=== PATIENT | male | born 1990 | race African-American/Black ===

== ENCOUNTER 2024-12-12 10:01 | Outpatient (REF) | payer OTHER, SELFPAY ==
--- OUTSIDE RECORDS SUMMARY | 2024-12-12 11:19 | XMS_ITS | Data Portability ---
Author Organization [facility], [address] Address [address] [place] [address] Assessment No assessment recorded. Plan of Treatment Reminders Order Date Submit Date Provider Last Modified By Organization Details Last Modified Time Details Appointments None recorded. Lab urinalysis, dipstick 2023 024 [email or web address] [address], [address] [place], [address], 4 19:19:38 chlamydia trachomatis + neisseria gonorrhoeae + trichomonas vaginalis DNA panel, ANTONIETA+probe, urine 2023 024 CHRISTINA [facility]), [facility] [place], [address], 4 06:07:46 culture, urine 2023 024 [place] [facility], [facility] [place], [address], 4 22:05:48 Referral None recorded. Procedures None recorded. Surgeries None recorded. Imaging XR, knee, 3 view 2023 024 [email or web address] 48 [facility], [address] [place] [address], [address], 4 17:27:12 Medication Orders cephalexin 500 mg capsule 2023 024 [facility] #[id number], [address] [place], [address], 4 19:20:53 naproxen 500 mg tablet 2023 024 [facility] #[id number], [address] [place], [address], 17:21:27 Patient TargetsNo targets recorded. Patient Instructions Encounter Date Encounter Id Patient Instructions Last Modified By Organization Details Last Modified Time 02/23/2024 [id number] knee pain or injury: care instructions [email or web address] Not available 02/23/2024 16:43:53 04/10/2024 [id number] painful urinatio n (dysuria): care instructions Not available 04/10/2024 19:19:36 Urinary Tract Infections (UTI) in Men: Care Instructions Not available 04/10/2024 19:19:36 Reason for Referral None Reported. Results Created Date Observation Date Name Description Value Unit Range Abnormal Flag Note LastModifiedBy Organization Detail LastModifiedTime 04/10/2004/11/2024 URINE CULTU BEKAH VASQUEZ urine culture, routine FINAL REPORT Not Available [facility] ([facility]) [address] [place], [address], 04/11/2024 22:05:48 04/10/20 24 04/11/2024 URINE CULTU BEKAH VASQUEZ result 1 NO GROWTH Not Available [facility] ([facility]) [address] [place], [address], 04/11/2024 22:05:48 04/10/20 24 04/12/2024 CT/GC /TV ANTONIETA+M YCOPL ASMAS URINE mycoplasma genitalium ANTONIETA NEGATI VE negati ve Not Available [facility] ([facility]) [address] [place], [address], 04/13/2024 06:07:46 04/10/20 24 04/12/2024 CT/GC /TV ANTONIETA+M YCOPL ASMAS URINE mycoplasma hominis ANTONIETA NEGATI VE negati ve Not Available [facility] ([facility]) [address] [place], [address], 04/13/2024 06:07:46 04/10/20 24 04/12/2024 CT/GC /TV ANTONIETA+M YCOPL ASMAS URINE ureaplasma spp ANTONIETA NEGATI VE negati ve Not Available [facility] ([facility]) [address] [facility], [place], [address], 04/13/2024 06:07:46 04/10/20 24 04/12/2024 CT/GC /TV ANTONIETA+M YCOPL ASMAS URINE trich vag by ANTONIETA NEGATI VE negati ve Not Available [facility] ([facility]) [address] [place], [address], 04/13/2024 06:07:46 04/10/20 24 04/12/2024 CT/GC /TV ANTONIETA+M YCOPL ASMAS URINE chlamydia trachomatis, ANTONIETA POSITI VE negati ve abnormal Not Available [facility] ([facility]) [address] [place], [address], 04/13/2024 06:07:46 04/10/20 24 04/12/2024 CT/GC /TV ANTONIETA+M YCOPL ASMAS URINE neisseria gonorrhoeae, ANTONIETA NEGATI VE negati ve Not Available [facility] ([facility]) [address] [place], [address], 04/13/2024 06:07:46 04/10/20 24 04/10/2024 urina lysis , dipst ick Unknown Analyte Normal = light yellow Not Available [address] [place], [address], 04/10/2024 18:25:59 04/10/20 24 04/10/2024 urina lysis , dipst ick Unknown Analyte Normal = clear Not Available [address] [place], [address], 04/10/2024 18:25:59 04/10/20 24 04/10/2024 urina lysis , dipst ick Unknown Analyte Normal = negati ve Not Available [address] [place], [address], 04/10/2024 18:25:59 04/10/20 24 04/10/2024 urina lysis , dipst ick Unknown Analyte Negati ve Not Available [address] [place], [address], 04/10/2024 18:25:59 04/10/20 24 04/10/2024 urina lysis , dipst ick Unknown Analyte Normal = Negati ve Not Available [address] [place], [address], 04/10/2024 18:25:59 04/10/20 24 04/10/2024 urina lysis , dipst ick Unknown Analyte Negati ve Not Available [address] [place], [address], 04/10/2024 18:25:59 04/10/20 24 04/10/2024 urina lysis , dipst ick Unknown Analyte Normal = Negati ve Not Available [address] [place], [address], 04/10/2024 18:25:59 04/10/20 24 04/10/2024 urina lysis , dipst ick Unknown Analyte Negati ve Not Available [address] [place], [address], 04/10/2024 18:25:59 04/10/20 24 04/10/2024 urina lysis , dipst ick Unknown Analyte Normal = 1.010, 1.015, 1.020 Not Available [address] [place], [address], 04/10/2024 18:25:59 04/10/20 24 04/10/2024 urina lysis , dipst ick Unknown Analyte Normal = Negati ve Not Available [address] [place], [address], 04/10/2024 18:25:59 04/10/20 24 04/10/2024 urina lysis , dipst ick Unknown Analyte Negati ve Not Available [address] [place], [address], 04/10/2024 18:25:59 04/10/20 24 04/10/2024 urina lysis , dipst ick Unknown Analyte Normal = 6.5, 7.0, 7.5, 8.0 Not Available [address] [place], [address], 04/10/2024 18:25:59 04/10/20 24 04/10/2024 urina lysis , dipst ick Unknown Analyte Normal = Negati ve Not Available [address] [place], [address], 04/10/2024 18:25:59 04/10/20 24 04/10/2024 urina lysis , dipst ick Unknown Analyte Negati ve Not Available [address] [place], [address], 04/10/2024 18:25:59 04/10/20 24 04/10/2024 urina lysis , dipst ick Unknown Analyte Normal = 0.2, 1.0 Not Available [address] [place], [address], 04/10/2024 18:25:59 04/10/20 24 04/10/2024 urina lysis , dipst ick Unknown Analyte Normal = Negati ve Not Available [address] [place], [address], 04/10/2024 18:25:59 04/10/20 24 04/10/2024 urina lysis , dipst ick Unknown Analyte Negati ve Not Available [address] [place], [address], 04/10/2024 18:25:59 04/10/20 24 04/10/2024 urina lysis , dipst ick Unknown Analyte Normal = Negati ve Not Available [address] [place], [address], 04/10/2024 18:25:59 04/10/20 24 04/10/2024 urina lysis , dipst ick Unknown Analyte Negati ve Not Available [address] [place], [address], 04/10/2024 18:25:59 04/10/20 24 04/10/2024 urina lysis , dipst ick Unknown Analyte Yellow Not Available [address] [place] [address] [address] [place], [address], 04/10/2024 18:25:59 04/10/20 24 04/10/2024 urina lysis , dipst ick Unknown Analyte Clear Not Available [address] [place] [address] [address] [place], [address], 04/10/2024 18:25:59 04/10/20 24 04/10/2024 urina lysis , dipst ick Unknown Analyte 1.015 Not Available [address] [place] [address] [address] [place], [address], 04/10/2024 18:25:59 08/06/04/10/2024 urina lysis , dipst ick Unknown Analyte 6.5 Not Available [address] [place], [address], 04/10/2024 18:25:59 04/10/20 24 04/10/2024 urina lysis , dipst ick Unknown Analyte 0.2 E.U./d L Not Available [address] [place], [address], 04/10/2024 18:25:59 02/23/20 24 02/23/2024 XR, knee, 3 view No observ ation record ed. [email or web address] [facility] [address] [place], [address], 02/23/2024 17:37:34 Result Notes None recorded. Problems Name Problem SNOMED Code Status Onset Date Resolution Date Notes Provider Name and Address Organization Details Recorded Time Pain of right knee joint 4277383747978 00 Active 2023 Wilberto Minor NP [address] , [place], [address], [place] - [facility] 16:41:54 Dysuria 96069273 Active 2023 Shaniqua Padilla NP [address] , [place], [address], [place] - [facility] 19:17:31 Sexually transmitted infectious disease 3750886 Active 2023 Shaniqua Padilla NP [address] , [place], [address], [place] - [facility] 16:06:50 Problem Notes None recorded. Procedures Surgical History Date Name Laterality Status Provider Name and Address Organization Details Recorded Time vasectomy completed Anna Urias PA - [facility] 04/10/2024 18:25:44 Imaging Results Imaging Date Name Status LastModified by Organiz ation Details LastModified Time 02/23/2024 XR, knee, 3 view completed [email or web address] [facility] [address] [facility] [place], [address], 02/23/2024 17:37:34 Procedure Notes None recorded. Medical Equipment None Reported. Allergies No known drug allergies Medications Name Sig Start Date Stop Date Status Note LastModified by Organization Details LastModified Time doxycycline hyclate 100 mg capsule TAKE 1 CAPSULE BY MOUTH TWICE A DAY FOR 7 DAYS, FOR STD. active Not Available Not Available No t Available metronidazol e 500 mg tablet TAKE 1 TABLET BY MOUTH TWICE A DAY FOR 7 DAYS 02/22 completed Not Available Not Available Not Available sulfamethoxa zole 800 mg-trimethop rim 160 mg tablet TAKE 1 TABLET BY MOUTH TWICE A DAY FOR 5 DAYS 02/22 completed Not Available Not Available Not Available cephalexin 500 mg capsule TAKE 1 CAPSULE BY MOUTH THREE TIMES A DAY FOR 7 DAYS active Not Available Not Available No t Available levofloxacin 750 mg tablet TAKE 1 TABLET BY MOUTH EVERY DAY FOR 7 DAYS 02/22 completed Not Available Not Available Not Available naproxen 500 mg tablet TAKE 1 TABLET TWICE A DAY BY ORAL ROUTE NEEDED FOR 10 DAYS, FOR INFLAMMA TION, PAIN. active Not Available Not Available No t Available Vitals Date Recorded Body height Body mass index (BMI) Body weight Body temperature Respiratory rate Oxygen saturation Oxygen saturation in Arterial blood by Pulse oximetry Heart rate Systolic blood pressure Diastolic blood pressure Provider Name and Address Organization Details Last Updated DateTime 4 177.8 cm 37 kg/m2 363863. 83 g 97.5 [degF] 18 /min 98 % 98 % 77 /min 118 mm[Hg] 78 mm[Hg] Olya Quiñonez [facility] 4 16:24:41 Date Recorded Body height Body mass index (BMI) Body weight Oxygen saturation Oxygen saturation in Arterial blood by Pulse oximetry Pain severity - 0-10 verbal numeric rating [Score] - Reported Heart rate Respiratory rate Body temperature Systolic blood pressure Diastolic blood pressure Provider Name and Address Organization Details Last Updated DateTime 4 177.8 cm 37.3 kg/m2 052198. 02 g 98 % 98 % 8 72 /min 18 /min 97.7 [degF] 155 mm[Hg] 69 mm[Hg] Anna Urias RYAN - [facility] 18:24:28 Social History Question Answer Notes LastModified by Organizat ion Details LastModified Time Tobacco Smoking Status Never Smoker Olya Dent simeon PA - [facility] 02/23/2024 16:22:58 What Is Your Level Of Alcohol Consumption? Occasional Information not available 02/23/2024 Are You Currently Employed? Yes Information not available 02/23/2024 Have You Had A Flu Shot This Season? Yes [email or web address] Information not available 04/10/2024 What Was The Date Of Your Most Recent Tobacco Screening? 04/10/2024 [email or web address] Information not available 04/10/2024 Do You Use Any Illicit Or Recreational Drugs? No Information not available 02/23/2024 Have You Recently Traveled Abroad? No [email or web address] Information not available 04/10/2024 Do You Or Have You Ever Used Any Other Forms Of Tobacco Or Nicotine? No Information not available 02/23/2024 Sex: Unknown Functional Status None recorded. Mental Status None recorded. Family History Relationship Description Onset Age of this Age Resolved Age Notes LastModified by Organization Details LastModified Time Father No current problems or disability Not available 02/22 16:22:41 Mother No current problems or disability Not available 02/22 16:22:41 Medical History No medical history recorded. Immunizations Vaccine Type Date Status Note Provider Nam e and Address Organization Details Recorded Time Influenza, MDCK, quadrivalent, PF 05/28/2023 completed Lety hendrix PA - [facility] 02/23/2024 16:17:59 COVID-19, mRNA, LNP-S, PF, 30 mcg/0.3 mL dose 11/28/2020 faina hendrix PA - [facility] 02/23/2024 16:17:59 COVID-19, mRNA, LNP-S, PF, 30 mcg/0.3 mL dose 12/21/2020 faina hendrix PA - [facility] 02/23/2024 16:17:59 Tdap 03/23/2019 completed Lety Cano null, PA - [facility] 02/23/2024 16:17:59 varicella 03/23/2019 completed Lety Marier null, PA - [facility] 02/23/2024 16:17:59 varicella 04/26/2019 completed Lety Marier null, PA - [facility] 02/23/2024 16:17:59 Influenza, split virus, quadrivalent, PF 06/05/2020 completed Lety Marier null, PA - [facility] 02/23/2024 16:17:59 Influenza, split virus, quadrivalent, PF 06/29/2019 completed Letydio Cano null, PA - [facility] 02/23/2024 16:17:59 Past Encounters Encounter ID Performer Location Encounter Start Date Encounter Closed Date Diagnosis/Indication Diagnosis SNOMED-CT Code Diagnosis ICD10 Code Diagnosis Note [id number] [address] [place] [address] 12/05/2019 09:40:02 12/05/2019 10:11:05 [id number] Wilberto Minor, [facility] [address] [facility] [address] [place] [address] 02/23/2024 16:13:55 02/23/2024 17:27:12 Pain of right knee joint 4932549100 08137 M25.561 Based on your presentati on and exam, you are diagnosed with an knee sprain. I am going to prescribe you an antiinflam matory medication to help with the discomfort . Do the knee stretches that I gave you. My suggestion s for this condition include:1. Ice2. Elevate3. Rest4. Make sure you stretch your hamstring, quadriceps , and calf regularly for the next 1-2 weeks5. Take Tylenol if you do not have any allergies to these medication s. If you take a blood thinner you should not take NSAIDS like Ibuprofen. 6. After 3 days of icing - I would switch to heat - this will help reabsorb any bruising or swelling. If you are still having pain after 7-10 days, I would suggest that you follow up with our office again or schedule and appointmen t with an orthopedis t. Advanced Imaging May be necessary I would be seen more urgently if you develop any of the following symptoms.1 . Numbness2. Cold Extremitie s3. Worsening Pain4. Skin Redness5. Calf Swelling Thank you for using [facility] , please contact our office if you have any questions or concerns. [id number] Shaniqua Padilla [place] [address] [place] [address] 04/10/2024 18:08:29 04/10/2024 19:27:00 Dysuria [id number] R30.0 The following are recommenda tions to help with your symptoms and recovery:1 . Drink Plenty of fluids - Stay hydrated2. Finish full antibiotic course3. I recommend starting a Probiotic - I recommend Florastor4 . If you take Azo - this will help the burning and urgency feeling - just be aware it will turn your urine bright yellow. I would not hesitate to be seen again if you develop:1. Severe Back Pain2. Abdominal Pain3. Nausea and Vomiting4. Vaginal Discharge or Bleeding5. Fever > 101.0 You symptoms should improve within 72 hours for a typically UTI. If a urine culture was sent out to the lab for you we should get the results back within 4 days. This will be able to prove that your symptoms are caused by a UTI and it will also verify that the correct antibiotic was prescribed . Thank you for using [facility] - please don't hesistate to call our office if you have any questions or concerns. Health Concerns Section Related Observation LastModified by Organization Detai ls LastModified Time None Recorded Concern Status LastModified by Organization Details LastModified Time None Recorded Advance Directives Directive None Recorded Payers Encounter Date Sequence Insurance Name Policy Number Policy Haque Covered Member ID Haque Member ID Guarantor Name 12/05/2019 1 [employer] [id number] Nicole Nathan [id number] Colin Nathan 02/23/2024 1 [facility] [id number] Colin Nathan [id number] Colin Nathan 04/10/2024 1 [facility] [id number] 2 Colin Nathan [id number] Colin Nathan Notes Date Note Type Note Provider Name and Address Organization Details Recorded Time 4 text/html KneeReported bypatient.Location:right Quality:aching; sharp; frequent; worsening Severity:moderate; pain level 5/10 Duration:date of onset:; 7 days; 02/15/2024 Timing:acute; abrupt Context:sports injury Alleviating Factors:rest; limited weight bearing Aggravating Factors:twisting; ROM; weight bearing Associated Symptoms:no weakness; no numbness; no tingling; no swelling; no redness; no warmth; no ecchymosis; no catching/locking; no popping/clicking; no buckling; no grinding; no instability; no drainage; no fever; no chills; no weight loss; no change in bowel/bladder habits;radiation down leg Previous Surgery:none Prior Imaging:none Previous Injections:none Previous PT:none Work Related:no Working:no Wilberto Minor NP [address] [place], [address], [employer] 02/25/2024 15:18:12 4 text/html UTI female UCReported bypatient.source of patient informationInformation obtained from patient; Patient arrived at Urgent Care ambulatory UTI Symptoms:no blood in the urine; no pain in the flank; no fever/chills; no incontinence; no recurrent UTI;urgency;burning sensation during urination Severity:moderate Duration:started ; 5 days Modifying Factors:nothing gives relief 34 YOM presents with dysuria x 5 days. denies discharge , fever, chills , Shaniqua Padilla NP [address] [place], [address], [employer] [facility] 05/09/2024 16:34:26
--- OUTSIDE RECORDS SUMMARY | 2024-12-12 11:20 | XMS_ITS | Clinical Summary ---
Author Organization [facility] Address [address] [place] [address] Care Team Providers Care Catering Associate Name Role Phone Pcp, No MD Primary Care Provider Unavailabl e Allergies Active Allergy Reactions Criticality Noted Date Comments House Dust Mite 04/20/2023 Medications No known medications Active Problems No known active problems Family History Medical History Relation Comments Cancer Father Cancer Maternal Grandmother Cancer Mother's Brother Relation Status Comments Father Maternal Grandmother Mother's Brother Social History Tobacco Use Types Packs/Day Years Used Date Smoking Tobacco: Never Smokeless Tobacco: Never Tobacco Cessation:Counseling Given: Not Answered Alcohol Use Standard Drinks/Week Comments Not Currently 0 (1 standard drink = 0.6 oz pur e alcohol) Sex and Gender Information Value Date Recorded Sex Assigned at Male 04/18/2023 10:31 AM EDT Legal Sex Male 12:26 AM EDT Gender Identity Male 04/18/2023 10:31 AM EDT Sexual Orientation Straight 04/18/2023 10 :31 AM EDT Last Filed Vital Signs Vital Sign Reading Time Taken Comments Blood Pressure 135/83 04/20/2023 2:39 PM EDT Pulse 83 04/20/2023 2:39 PM EDT Temperature 36.8 ??C (98.3 ??F) 03/26/2023 12:46 AM E DT Respiratory Rate 20 03/26/2023 3:55 AM EDT Oxygen Saturation 95% 03/26/2023 12:46 AM EDT Inhaled Oxygen Concentration - - Weight 119 kg (262 lb 11.2 oz) 04/20/2023 2:39 P M EDT Height 177.8 cm (5' 10 ) 03/26/2023 12:46 AM EDT Body Mass Index 37.69 03/26/2023 12:46 AM EDT Plan of Treatment Health Maintenance Due Date Last Done Comments HIV Screening 1988 Hepatitis C Screening 2006 DTaP,Tdap,and Td Vaccines (3 - Td or Tdap) 01/14/2019 01/14/2009, 01/03/2009 COVID-19 Vaccine (1 - 2023-2 5 season) 2024 Influenza Vaccine (Season Ended) 2025 05/19/2013, 01/14/2009 Zoster Vaccines (1 of 2) 2038 Meningococcal Vaccine Aged Out 01/14/2009 No callum luz marina eligible based on patient's age to complete this topic Hepatitis A Vaccines Aged Out 10/14/2012, 02/21/2009, 01/14/2009 No longer eligible based on patient's age to complete this topic Hepatitis B Vaccines Completed 10/14/2012, 02/21/2009, 01/14/2009 HPV Vaccines Aged Out No longer eligi ble based on patient's age to complete this topic MMR Vaccines Aged Out No longer eligi ble based on patient's age to complete this topic Pneumococcal Vaccine: Pediatrics (0 to 5 Years) and At-Risk Patients (6 to 49 Years) Aged Out No longer eligible b ased on patient's age to complete this topic Insurance [employer] Member Subscriber Plan / Payer (Ef fective 2021-Present) Name:Colin Nathan Relation to Subscriber:Self Name:Colin Nathan Payer ID:[id number] Group ID:Not on file Type:Other Address: .[address] PPO Care Teams Catering Associate Relationship Specialty Start Date End Date PcpRonit MD [address] [place] [address] PCP - General Internal Medicine 03/26/23
--- OUTSIDE RECORDS SUMMARY | 2024-12-12 11:20 | XMS_ITS | Encounter Summary ---
Author Organization [email or web address] Address [address] [facility] [address] [place] [address] Care Team Providers Care Neuropsychology Division Chief Name Role Phone Maryellen Casas NP Primary Care Provider [phone] Reason for Referral * Consultation (Routine) - Pending Review Specialty Diagnoses / Procedures Referred By Karine madden Referred To Contact Urology Diagnoses Elevated PSA Maryellen Casas NP [address] [place], [place] Phone: tel: fax: Referral ID Status Reason Start Date Expiration Date Visits Requested Visits Authorized [id number] Pending Review Specialty Services Required 12/12/2024 12/12/2025 1 1 * Consultation (Routine) - Authorized Specialty Diagnoses / Procedures Referred By Karine madden Referred To Contact Optometry Diagnoses Healthcare maintenance Maryellen Casas NP [address] [place], [place] Phone: tel: fax: [facility] OPTOMETRY [address] [place] [address] Phone: tel: fax: Referral ID Status Reason Start Date Expiration Date Visits Requested Visits Authorized [id number] Authorized Consult and Treat 12/12/2024 12/12/2025 1 1 * Consultation (Routine) - Pending Review Specialty Diagnoses / Procedures Referred By Karine madden Referred To Contact Sleep Medicine Diagnoses Obstructive sleep apnea syndrome Maryellen Casas NP [address] [place], [place] Phone: tel: fax: Referral ID Status Reason Start Date Expiration Date Visits Requested Visits Authorized [id number] Pending Review Specialty Services Required 12/12/2024 12/12/2025 1 1 Encounter Details Date Type Department Care Team (Late st Contact Info) Description 12/12/2024 9:00 AM EDT Office Visit [facility] MEDICINE [address] [place] [phone] Maryellen Casas NP [address] [place] [address] Prediabetes (Primary Dx); Obstructive sleep apnea syndrome; Elevated blood pressure reading without diagnosis of hypertension; Dietary counseling; Exercise counseling; Healthcare maintenance; Elevated PSA; Family history of thyroid disorder Social History Tobacco Use Types Packs/Day Years Used Date Smoking Tobacco: Never Smokeless Tobacco: Never Tobacco Cessation:Counseling Given: Not Answered Depression Answer Date Recorded Patient Health Questionnaire-9 Score 3 12/12/2024 Patient Health Questionnaire-9 Score 3 12/12/2024 Last PHQ-9: Questionnaire Data Not on file 0 12/12/2024 Housing Stability Answer Date Recorded What is your housing situation today? I have [place] huang 12/12/[address] you li ve. Do you have problems with any of the following? None of the above 12/12/2024 Food Insecurity Answer Date Recorded Within the past 12 months, y ou worried that your food would run out before you got money to buy more: Never True 12/12/2024 Within the past 12 months,th e food you bought just didn't last and you didn't have enough money to get more: Never True 05/2025 Transportation Answer Date Recorded In the past 12 months, has l ack of transportation kept you from medical appts, meetings, work or from getting things needed for daily living? No 12/12/2024 Utilities Answer Date Recorded In the past 12 months, has t he electric, gas, oil or water company threatened to shut off services in your home? No 12/12/2024 Depression Answer Date Recorded Patient Health Questionnaire-2 Score 0 12/12/2024 Internet Access Answer Date Recorded Internet Access Q1 Yes 12/12/2024 Internet Access Q2 Not on file 12/12/2024 Sex and Gender Information Value Date Recorded Sex Assigned at Male 09/19/2024 2:47 PM EST Legal Sex Male 2:46 PM EST Gender Identity Male 09/19/2024 2:47 PM EST Sexual Orientation Straight 09/19/2024 2: 47 PM EST documented as of this encounter Last Filed Vital Signs Vital Sign Reading Time Taken Comments Blood Pressure 138/79 12/12/2024 9:19 AM EDT Pulse 74 12/12/2024 9:19 AM EDT Temperature 37.1 ??C (98.8 ??F) 12/12/2024 9:19 AM ED T Respiratory Rate 20 12/12/2024 9:19 AM EDT Oxygen Saturation 98% 12/12/2024 9:19 AM EDT Inhaled Oxygen Concentration - - Weight 123 kg (270 lb 9.6 oz) 12/12/2024 9:19 AM EDT Height 177.8 cm (5' 10 ) 12/12/2024 9:19 AM EDT Body Mass Index 38.83 12/12/2024 9:19 AM EDT documented in this encounter Plan of Treatment Scheduled Orders Name Type Priority Associated Diagnoses Orde r Schedule HIV-1/2 Antigen and Antibodies, Fourth Generation, with Reflexes Lab Routine Healthcare maintenance Expected: 12/12/2024 (Approximate), Expires: 12/12/2025 RPR (Monitor) with Reflex to??Titer Lab Routine Healthcare maintenance Expected: 12/12/2024, Expires: 12/12/2025 Hepatitis C Antibody with Reflex to HCV, RNA, Quantitative, Real-Time PCR Lab Routine Healthcare maintenance Expected: 12/12/2024, Expires: 12/12/2025 Chlamydia/N. Gonorrhoeae RNA, TMA, Urogenitial Microbiology Routine Healthcare maintenance Ordered: 12/12/2024 Lipid Panel, Standard Lab Routine Prediabetes Expected: 12/12/2024 (Approximate), Expires: 12/12/2025 Comprehensive Metabolic Panel Lab Routine Prediabetes Expected: 12/12/2024 (Approximate), Expires: 12/12/2025 TSH W/Reflex to FT4 Lab Routine Family history of thyroid disorder Expected: 12/12/2024 (Approximate), Expires: 12/12/2025 Scheduled Referrals Name Type Priority Associated Diagnoses Orde r Schedule Referral to Sleep Medicine Outpatient Referral Routine Obstructive sleep apnea syndrome Expected: 12/12/2024 (Approximate), Expires: 12/12/2025 Referral to [facility] Outpatient Referral Routine Healthcare maintenance Expected: 12/12/2024 (Approximate), Expires: 12/12/2025 Referral to Urology Outpatient Referral Routine Elevated PSA Expected: 12/12/2024 (Approximate), Expires: 12/12/2025 documented as of this encounter Procedures Procedure Name Priority Date/Time Associated Diagnosis Comments POCT GLYCATED HEMOGLOBIN, TOTAL Routine 12/12/2024 9:21 AM EDT Prediabetes POCT GLUCOSE Routine 12/12/2024 9:21 AM EDT Prediabetes documented in this encounter Results * POCT HGB A1C (12/12/2024 9:21 AM EDT) Hemoglobin A1C 5.9 4.0 - 6.0 % QC [employer] Lot # [id number] Lot# Expiration Date 60,326 Blood 12/12/2024 9:21 AM EDT Maryellen Casas NP POINT OF CARE TEST ENTER/EDIT OR DERABLES Final Result * POCT Glucose (12/12/2024 9:21 AM EDT) Glucose Blood, POC 104 60 - 200 mg/dL QC [facility] Lot # [id number] Lot# Expiration Date 101,425 Blood Capillary blood specimen / Unknown 12/12/2024 9:21 AM EDT us Maryellen Casas NP POINT OF CARE TEST ENTER/EDIT OR DERABLES Final Result documented in this encounter Visit Diagnoses Diagnosis Prediabetes- Primary Other abnormal glucose Obstructive sleep apnea syndrome Obstructive sleep apnea (adult) (pediatric) Elevated blood pressure reading without diagnosis of hypertension Dietary counseling Dietary surveillance and counseling Exercise counseling Healthcare maintenance Elevated PSA Elevated prostate specific antigen (PSA) Family history of thyroid disorder documented in this encounter Additional Health Concerns Assessment Noted Time PHQ-9 Depression Total Score: 3 04/09/20 25 9:58 AM EDT documented as of this encounter Care Teams Neuropsychology Division Chief Relationship Specialty Start Date End Date Maryellen Casas NP [address] [place] [id number] PCP - General Family Medicine 12/12/24 documented as of this encounter
--- OUTSIDE RECORDS SUMMARY | 2024-12-12 11:20 | XMS_ITS | Clinical Summary ---
Author Organization [employer] Address [address] [facility] [address] [place] [address] Care Team Providers Care Plugman Name Role Phone Maryellen Casas [employer] CRE[employer] WORKER Primary Care Provider [phone] Allergies Active Allergy Reactions Criticality Noted Date Comments Dust Mite Extract 04/20/2023 Active Problems Problem Noted Date Diagnosed Date Dietary counseling 12/12/2024 Exercise counseling 12/12/2024 Healthcare maintenance 12/12/2024 Elevated blood pressure read ing without diagnosis of hypertension 11/28/2024 Insomnia 11/28/2024 Obstructive sleep apnea syndrome 11/28/2024 Sexually transmitted infection 04/13/2024 Dysuria 04/10/2024 Arthralgia of right knee 02/23/2024 Prediabetes 03/28/2017 Encounters Date Type Department Care Team Description 12/12/2024 9:00 AM EDT Office Visit [facility] MEDICINE [address] [place] [address] [phone] Maryellen Casas NP Prediabetes (Primary Dx); Obstructive sleep apnea syndrome; Elevated blood pressure reading without diagnosis of hypertension; Dietary counseling; Exercise counseling; Healthcare maintenance; Elevated PSA; Family history of thyroid disorder 12/12/2024 Travel 12/05/2024 Patient Outreach [facility] [address] [place] [address] Maryellen Casas NP Pre-visit Planning ([facility]OH unable to reach [facility]) 12/04/2024 Telephone [facility] [address] [place] [phone] Rea Bower MA Chart prep 09/19/2024 3:00 PM EST Immunization [facility] [address] [place] [address] [id number] Lizzette Allred LPN Encounter for immunization (Primary Dx) 09/19/2024 Travel from Last 3 Months Immunizations Name Administration Dates Next Due Influenza Injectable Quadriv alant Preservative Free IIV4 MDCK 05/28/2023 Influenza injectable quadrivalent preservative f ree 06/05/2020,06/29/2019 Influenza, IIV3, injectable 06/19/2017 Influenza, seasonal, injectable, preservative fr ee 09/19/2024,05/11/2024 Tdap 03/23/2019,01/03/2009 Varicella 04/26/2019,03/23/2019 Social History Tobacco Use Types Packs/Day Years [...] the past 12 months, has t he [employer] gas, oil or water company threatened to [...] Orientation Straight 09/19/2024 2: 47 PM EST Last Filed Vital Signs Vital Sign Reading [...] Mass Index 38.83 12/12/2024 9:19 AM EDT Plan of Treatment Health Maintenance Due Date Last Done Comments HIV Screening 1988 Lipid Panel 1988 Family Planning (PISQ) 2003 Hepatitis C Screening 2006 Hepatitis B Vaccines (1 of 3 - 19+ 3-dose series) 2007 COVID-19 Vaccine ( - 2023- season) 2024 12/21/2020, 11/28/2020 Alcohol/Substance Use Screening 12/12/2025 12/12/2024 Depression Screening 12/12/2025 12/12/2024, 12/13/19 Diabetes: Hemoglobin A1C 12/12/2025 12/12/2024 SDOH Screening 12/12/2025 12/12/2024 Tobacco Screening 12/12/2025 12/12/2024 DTaP/Tdap/Td Vaccines (3 - Td or Tdap) 03/23/2029 03/23/2019, 01/03/2009 Zoster Vaccines (1 of 2) 2038 RSV Patients and Patients Aged 60 years or older (1 - 1-dose 75+ series) 2063 Influenza Vaccine Completed 09/19/2024, , 05/28/2023, Additional history exists HIB Vaccines Aged Out No longer eligi ble based on patient's age to complete this topic HPV Vaccines Aged Out No longer eligi ble based on patient's age to complete this topic Hepatitis A Vaccines Aged Out No long er eligible based on patient's age to complete this topic IPV Vaccines Aged Out No longer eligi ble based on patient's age to complete this topic Meningococcal Vaccine Aged Out No callum luz marina eligible based on patient's age to complete this topic Pneumococcal Vaccine: Pediatrics (0 to 5 Years) and At-Risk Patients (6 to 49) Years) Aged Out No longer eligible based on patient's age to complete this topic RSV under 20 months Aged Out No longe r eligible based on patient's age to complete this topic Rotavirus Vaccines Aged Out No longer eligible based on patient's age to complete this topic Procedures Procedure Name Priority Date/Time Associated Diagnosis Comments POCT GLYCATED HEMOGLOBIN, TOTAL Routine 12/12/2024 9:21 AM EDT Prediabetes POCT GLUCOSE Routine 12/12/2024 9:21 AM EDT Prediabetes from Last 3 Months Results * POCT HGB A1C (12/12/2024 9:21 AM EDT) Hemoglobin A1C 5.9 4.0 - 6.0 % QC [employer] Lot # [id number] Lot# Expiration Date 60,326 Blood 12/12/2024 9:21 AM EDT Maryellen Casas NP POINT OF CARE TEST ENTER/EDIT OR DERABLES Final Result * POCT Glucose (12/12/2024 9:21 AM EDT) Glucose Blood, POC 104 60 - 200 mg/dL QC [employer] Lot # [id number] Lot# Expiration Date 101,425 Blood Capillary blood specimen / Unknown 12/12/2024 9:21 AM EDT Maryellen Casas NP POINT OF CARE TEST ENTER/EDIT OR DERABLES Final Result from Last 3 Months Insurance Care Teams Plugman Relationship Specialty Start Date End Date Maryellen Casas NP [address] [place] [phone] PCP - General Family Medicine 12/12/24
--- OUTSIDE RECORDS SUMMARY | 2024-12-12 11:20 | XMS_ITS | Data Portability ---
Author Organization [employer] Address [address] [place] [id number] Care Team Providers Care Computer Animator Name Role Phone JOSE ARAIZA Primary Care Provider Assessment Encounter Date Assessment Date Assessment LastModified by Organization Details LastModified Time 12/22/2018 12/22/2018 Assessment: Righ t shoulder impingement/rotato r cuff tendinitis. Right rhomboid spasm 28-year-old male presents to [facility] for evaluation of right shoulder pain x 1 week. 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 He reports improvement after work but symptoms started to return after playing with his children. Denies numbness/tingling. He presented to [facility] and xrays of right shoulder on 12/19/18 were negative for any acute bony abnormalities. Joint spaces well maintained. Patient was given IM CSI that helped for a couple days. He is also taking Meloxicam that is providing minimal relief of symptoms. Notes occasional spasms to right upper back but majority of tenderness to lateral shoulder with shoulder abduction movement. On examination, patient is able to demonstrate full right shoulder range of motion and strength. He has some discomfort with abduction and forward flexion after 90? ? ? and abduction strength testing. Mildly positive impingement testing. Negative Fabian's and Speed's testing. Neurovascularly intact. Tenderness to medial scapular border on right side Plan: Discussed findings and treatment options with patient. Discussed corticosteroid injection to right shoulder and patient wishes to proceed at this time. He is not a diabetic. Right shoulder was sterilely prepared and injected with Depo-Medrol and lidocaine. Patient tolerated procedure well and left ambulating and in no acute distress. Muscle relaxer sent to pharmacy for patient to try at night as needed for muscle spasm. He can alternate ice and warm compress to upper back and ice as needed to right shoulder. Rotator cuff tendinitis exercises provided. Follow-up in 4-6 weeks if needed. Consider MRI if symptoms do not improve her symptoms worsen. Patient understands and agrees to treatment plan. Portions of this note may be dictated using [employer] voice recognition software. Variances in spelling and vocabulary are possible and unintentional. Not all errors are caught/corrected. Please notify the author if any discrepancies are noted or if the meaning of any statement is not clear. [email or web address] Not available 12/22/2018 13:39:41 Plan of Treatment Reminders Order Date Submit Date Provider Last Modified By Organization Details Last Modified Time Details Appointments None recorded. Lab None recorded. Referral None recorded. Procedures None recorded. Surgeries None recorded. Imaging None recorded. Medication Orders cyclobenza blane 10 mg tablet 2018 019 INTERFACE [id number], [address] [place], [address], 9 13:32:13 Patient TargetsNo targets recorded. Patient InstructionsNo instructions recorded. Reason for Referral None Reported. Problems Name Problem SNOMED Code Status Onset Date Resolution Date Notes Provider Name and Address Organization Details Recorded Time Pain of right shoulder joint 831114945654314 00 Active 2018 Ernseto hendrix [facility] 9 13:09:48 Problem Notes None recorded. Procedures Surgical History Date Name Laterality Status Provider Name and Address Organization Details Recorded Time 9 W-Rt/Lt Lg Joint Injection w/ 1cc Depo&Lidocaine completed RYAN MARR [facility] [place], [address], [facility] 12/22/2018 13:34:01 8 Other [facility] 12/23[facility] 19 13:09:08 Imaging Results None recorded. Procedure Notes None recorded. Medical Equipment None Reported. Allergies No known drug allergies Medications Name Sig Start Date Stop Date Status Note LastModified by Organization Details LastModified Time cyclobenzaprine 10 mg tablet Take 1 tablet by oral route at bedtime . 2018 active Not Available Not Available Not Avai lable meloxicam active Not Available Not Bettie ilable Not Available Vitals Date Recorded Body height Body mass index (BMI) Body weight Pain severity - 0-10 verbal numeric rating [Score] - Reported Provider Name and Address Organization Details Last Updated DateTime 12/22/2018 175.26 cm 35.4 kg/m2 901902.17 g 6 [facility] 12/22/2018 13:06:45 Social History Question Answer Notes LastModified by Organizat ion Details LastModified Time Tobacco Smoking Status Never Smoker Ernesto Yates null, [facility] 12/22/2018 13:08:51 Do You Have An Advance Directive? Yes [email or web address] Information not available 12/22/2018 What Is Your Level Of Alcohol Consumption? None [email or web address] Information not available 12/22/2018 How Much Tobacco Do You Chew? None Information not available 12/22/2018 Are You Currently Employed? Yes Information not available 12/22/2018 Which Illicit Or Recreational Drugs Have You Used? None [email or web address] Information not available 12/22/2018 Who Is Your Employer? [employer] [email or web address] Information not available 12/22/2018 What Is Your Occupation? Other [email or web address] Information not available 12/22/2018 Which Of Your Hands Is Dominant? Right [email or web address] Information not available 12/22/2018 Live Alone Or With Others? With Others [email or web address] Information not available 12/22/2018 Marital Status [email or web address] Informatio n not available 12/22/2018 Do You Have A Medical Power Of Putty Tinter Maker? No [email or web address] Information not available 12/22/2018 What Was The Date Of Your Most Recent Tobacco Screening? 12/22/2018 Information not available 03/29/2019 How Much Tobacco Do You Smoke? No Information not available 12/22/2018 Sex: Unknown Functional Status None recorded. Mental Status None recorded. Family History Relationship Description Onset Age of this Age Resolved Age Notes LastModified by Organization Details LastModified Time Mother History of carcinoma [email or web address] Not available 2018 12:49:09 Medical History Condition Response Heart Problems N HIV or AIDS N None N Osteoarthritis N Leukemia N Irregular Heartbeat N Parkinson's Disease N MRSA N Migraines N COPD N Lung Disease N Depression N Blood Clots N Previous Pain Management Treatment: N Lupus/SLE N Bipolar N Sickle Cell Anemia N Anemia N Poor Circulation N Congestive Heart Failure N Stomach Ulcers N Diabetes N Anxiety Disorder N Hepatitis/Liver Disease N Bleeding Disorder N Seizures/Epilepsy N Thyroid Problems/Goiter N Tuberculosis N Other: N Chest Pain/Angina N Cancer N Asthma N Chronic Back Pain N Sleep apnea N Numbness/Tingling N Stroke/TIA N GERD/Reflux N High Cholesterol N Pulmonary Embolis N GI Issues Specify: N Rheumatoid Arthritis N Fibromyalgia N Hypertension N Osteoporosis N Kidney Disease N Past Encounters Encounter ID Performer Location Encounter Start Date Encounter Closed Date Diagnosis/Indication Diagnosis SNOMED-CT Code Diagnosis ICD10 Code Diagnosis Note [id number] [facility]YAN [facility]ARR [facility] [facility] [address] 12/22/2018 12:40:47 12/22/2018 13:31:52 Pain of right shoulder joint 6176089704 2451696 M25.511 Spasm of back muscles 20 7249635 M62.830 Impingemen t syndrome of right shoulder region 0059158344 64009 M75.41 Health Concerns Section Related Observation LastModified by Organization Detai ls LastModified Time None Recorded Concern Status LastModified by Organization Details LastModified Time None Recorded Advance Directives Directive Y: Payers Encounter Date Sequence Insurance Name Policy Number Policy Haque Covered Member ID Haque Member ID Guarantor Name 12/22/2018 1 [facility] [id number] Nicole Nathan [id number] Colin Nathan Notes Date Note Type Note Provider Name and Address Organization Details Recorded Time 12/22/2018 text/html Patient presents to the [facility] as {{a new patient* an established patient an established patient with one of our providers}} here today {{for ER follow-up follow up from Urgent Care referred by PCP to establish care with our practice with a new issue* for evaluation of an old or recurrent problem referred for evaluation by career guidance counselor}}. Patient presents today with {{right* left bilat eral}} {{neck shoulder* up per arm elbow forearm w rist hand finger lo w back hip leg knee a nkle foot toe}} {{pain* fracture in fection}}. This complaint {{is is not*}} related to a(n) {{work related injury sports related event trauma injury trauma or injury*}}. This issue began {{suddenly* gradual ly}} about {{1 2 3 4* 5 6 7 8 9 10 11 12 13}} {{day days* week we eks month months ye ar years}} ago and is {{better worse* the same}} since onset. Pain today is {{0 1 2 3 4 5 6* 7 8 9 10}}/10. Pain is {{1 2 3 4 5 6 7 8* 9 10}}/10 at it's worst. The pain is {{constant* recurre nt frequent occasio nal}}. The pain is described as {{sharp* dull}}/{{a tom stabbing*}}/{ {throbbing shooting }}. Pain is primarily located on the {{top and back# front back si de inside outside t op bottom right side left side entirety}} of the {{neck shoulder* up per arm elbow forearm w rist hand finger lo w back hip leg knee a nkle foot toe}} {{with without*}} radiation {{proximally distal ly}}. Patient {{has had denies*}} swelling, warmth, discoloration to the area. There {{is is not*}} decreased sensation, numbness, tingling, burning sensation. There {{is* is not}} associated weakness. Patient {{has had* denies}} {{popping/locking e xcessive motion pain with motion*}}, {{clicking decrease d motion pain with motion}},{{catching grinding pain with motion}}. Patient {{has* has not}} been previously {{seen treated*}} for this condition ([facility]). Previous treatment of: rest, ice, heat, NSAIDs, Depo-Medrol IM. Previous treatment was {{temporarily# not minimally somewhat moderately signific antly}} helpful. Aggravating factors include: ROM, grasping, twisting, lifting, flexion/extension, overhead activities. The patient {{has* has not}} had {{recent* previous} } {{imaging* x-rays M RI CT venous doppler EMG}}. Prior imaging was performed at {{Chris Padilla* [facility] S[facility] office our office Urgent Care facility PCP office}}. The goal of the patient's visit today is {{follow-up continu ed treatment/managemen t* evaluation/defin itive treatment}}. RYAN MARR [address], [place], [address], [facility] 12/22/2018 13:40:13
--- OUTSIDE RECORDS SUMMARY | 2024-12-12 11:20 | XMS_ITS | Encounter Summary ---
Author Organization [employer] Address [address] [facility] [address] [place] [address] Care Team Providers Care Outcome Analyst Name Role Phone Maryellen Casas KODI Primary Care Provider [phone] Encounter Details Date Type Department Care Team (Latest Contact Info) Description 12/12/2024 Travel Social History Tobacco Use Types Packs/Day Years Used Date Smoking Tobacco: Never Smokeless Tobacco: Never Depression Answer Date Recorded Patient Health Questionnaire-9 [...] PM EST documented as of this encounter Plan of Treatment Not on file documented as of this encounter Visit Diagnoses Not on filedocumented in this encounter Additional Health Concerns Assessment Noted Time PHQ-9 Depression Total Score: 3 12/13/19 9:58 AM EDT documented as of this encounter Care Teams Outcome Analyst Relationship Specialty Start Date End Date Maryellen Casas NP [address] [place] [id number] PCP - General Family Medicine 12/12/24 documented as of this encounter
[2024-12-12 12:29] LABS: Alanine Aminotransferase 45 U/L (0-40); Albumin Level 4.2 g/dL (3.5-5.0); Alkaline Phosphatase 85 U/L (39-117); Anion Gap 11 (12-20); Aspartate Amino Transferase 40 U/L (5-37); Bilirubin Total 0.5 mg/dL (0.0-1.0); Blood Urea Nitrogen 12 mg/dL (9-16); Calcium 9.7 mg/dL (8.4-10.2); Carbon Dioxide 29 mmol/L (22-29); Chloride 104 mmol/L (96-108); Cholesterol 194 mg/dL (<200); Estimated Glomerular Filt Rate > 60; Glucose Random 99 mg/dL (60-115); HDL Cholesterol 46 mg/dL (>40); LDL Cholesterol Calculated 135 mg/dL (<100); Potassium 4.3 mmol/L (3.3-5.1); Sodium 140 mmol/L (135-145); Total Protein 7.5 g/dL (6.5-8.0); Triglycerides 69 mg/dL (<150)
[2024-12-12 12:46] LABS: TSH reflex Free T4 0.77 uIU/mL (0.32-4.0)
[2024-12-12 12:51] LABS: HIV AB/AG Nonreactive (Nonreactive); HIV Num 1 0.08 S/CO (0.00-0.99); ~HepC Num1 0.12 S/CO (0.00-0.79); ~Hepatitis C Antibody Nonreactive (Nonreactive)
[2024-12-12 14:46] LABS: CT PCR NOT DETECTED (Not Detect.); NG PCR NOT DETECTED (Not Detect.)
[2024-12-13 10:04] LABS: RPR Rapid Plasma Reagin NON-REACTIVE (NON-REACTIVE)
== END 2024-12-12 10:02 | disposition home or self-care (01) ==
LOC: HO.HHCL 10:01
PROVIDERS: Visit Provider Nurse Practitioner Family
DX: Z00.00 Encounter for general adult medical examination without abnormal findings (principal); R73.03 Prediabetes; Z83.49 Family history of other endocrine, nutritional and metabolic diseases; Z13.6 Encounter for screening for cardiovascular disorders
CPT/HCPCS: 80053; 80061; 84443; 86592; 86803; 87389; 87491; 87591